=== PATIENT | female | born 1985 | race Caucasian/White ===

== ENCOUNTER 2022-01-26 12:33 | Emergency (ER) | payer SELFPAY ==
[2022-01-26 12:39] VITALS: BP 122/79; PULSE 96; TEMP 99.1; BMI 41.0
[2022-01-26] MEDS ORDERED: diphenhydrAMINE HCL 25 MG CAPSULE (FP) PO ONE ×2 (13:30→13:32)
[2022-01-26] MEDS ORDERED: DEXAMETHASONE SOD PHOSPHATE 10 MG/1 ML VIAL IM ONE (13:30)
[2022-01-26] MEDS ORDERED: DEXAMETHASONE SOD PHOSPHATE 10 MG/1 ML VIAL ONE (13:32)
== END 2022-01-26 13:40 | disposition home or self-care (01) ==
LOC: JERFT 12:33
PROC: 3E023NZ Introduction of Analgesics, Hypnotics, Sedatives into Muscle, Percutaneous Approach (ICD-10-PCS; principal; 2022-01-26)
DX: L30.9 Dermatitis, unspecified (principal)
CPT/HCPCS: 99283-25; J1100